=== PATIENT | female | born 1940 | race Caucasian/White ===

== ENCOUNTER 2020-12-28 20:12 | Inpatient (IN) | payer MEDICARE, OTHER ==
[~2020-12-28] VITALS: Ht 170.2 cm; Wt 75.4 kg
--- NOTE | 2020-12-28 20:25 | NUR ---
PT ARRIVES VIA EMS STRETCHER TO ROOM 344. HAS A REPORTED RT HIP FX. TRANSFERRED FROM STRETCHER TO BED WITH 3 ASSIST. PT IS ALERT AND ORIENTED X3. HAS IVF TO RIGHT FOREARM. SUN CATH IN PLACE WITH AUGUSTINA URINE. ORIENTED TO CALL LIGHT.
--- NOTE | 2020-12-28 20:40 | NUR ---
ANTONIO GARNICA AT BEDSIDE.
--- NOTE | 2020-12-28 20:55 | NUR ---
PLACED #20 INSYTE TO RIGHT FOREARM, OTHER SITE WAS DISLODGED DURING TRANSFER. HAS IVF INFUSING AT 60CC/HR.
--- NOTE | 2020-12-28 21:04 | NUR ---
MORPHINE 2MG IVP GIVEN FOR PAIN 07/24 TO RT LEG.
[2020-12-28] MEDS ORDERED: SINGULAIR 110 MG/TAB PO (22:52)
[2020-12-28] MEDS ORDERED: ATIVAN 0.50.5 MG/TAB PO (22:52)
[2020-12-28] MEDS ORDERED: PRIL40 PO (22:52)
[2020-12-28] MEDS ORDERED: CYMBALTA 30MG30 MG PO (22:52)
[2020-12-28] MEDS ORDERED: PRINZIDE 12.5 M1 TA1 PO (22:53)
[2020-12-28 23:18] VITALS: BP 139/51; PULSE 67; TEMP 98.3
[2020-12-29] VITALS (13 sets, daily range): BP systolic 107–132; BP diastolic 36–77; PULSE 67–83; TEMP 97–98.2
--- NOTE | 2020-12-29 01:24 | NUR ---
MEDICATED WITH MORPHINE 2MG IVP FOR PAIN TO RIGHT LEG. SLIGHTLY REPOSITIONED AND SCD REMOVED FROM RT LEG AT THIS TIME.
[2020-12-29 01:36] LABS: MUCOUS Present /lpf; PH 5 (5-8); SQUAMOUS EPITHELIAL 0-2 /hpf; URINE APPEARANCE Hazy; URINE BACTERIA None Seen /hpf; URINE BILIRUBIN Negative (NEGATIVE); URINE BLOOD Negative (NEGATIVE); URINE COLOR Yellow; URINE GLUCOSE Negative (NEGATIVE); URINE KETONE Negative (NEGATIVE); URINE LEUKOCYTE ESTERASE Negative (NEGATIVE); URINE NITRATE Negative (NEGATIVE); URINE PROTEIN(semi-quant) Negative (NEGATIVE); URINE RBC 0-2 /hpf; URINE UROBILINOGEN Negative (NEGATIVE)
--- NOTE | 2020-12-29 02:45 | NUR ---
PT REPOSITIONED FOR COMFORT, ICE PACK APPLIED. ATIVAN 0.5MG PO GIVEN AT THIS TIME.
--- NOTE | 2020-12-29 03:24 | NUR ---
MEDICATED WITH MORPHINE 2MG IVP FOR CONTINUED RT HIP PAIN.
[2020-12-29 03:42] LABS: COLLECTION METHOD CLEAN CATCH
--- NOTE | 2020-12-29 04:05 | NUR ---
PLACED ON OXYGEN AT 2L/NC.
[2020-12-29 06:03] LABS: HEMOGLOBIN 10.7 g/dl (12.5-16.0); MEAN CELL VOLUME 93 fl (80.0-100.0); MEAN CORPUSCULAR HEMOGLOBIN 30 pg (27.0-31.0); MEAN CORPUSCULAR HGB CONC 33 g/dl (33.0-37.0); MEAN PLATELET VOLUME 11.2 fl (7.4-10.4); PLATELET COUNT 167 K/mm3 (130-400); RED BLOOD COUNT 3.52 M/mm3 (4.10-5.30); REDCELL DISTRIBUTION WIDTH-CV 12.5 % (11.5-14.5)
[2020-12-29 06:05] LABS: HEMATOCRIT 32.8 % (37.0-47.0)
[2020-12-29 06:11] LABS: INR 1.2 (0.8-3.0); PROTHROMBIN TIME 13.4 SECONDS (9.7-12.8)
[2020-12-29 06:14] LABS: ALBUMIN 3.2 gm/dL (3.5-5.0); BILIRUBIN,TOTAL 0.9 mg/dL (0.0-1.0); CALCIUM 8.1 mg/dL (8.4-10.2); CREATININE, serum 0.79 (0.52-1.25); POTASSIUM 3.9 mmol/L (3.4-5.0); TOTAL PROTEIN 5.7 gm/dL (6.4-8.2)
[2020-12-29 06:22] LABS: PRE ALBUMIN 18.1 mg/dL (17.6-36.0)
[2020-12-29 06:39] LABS: BAND 3 % (0-10); LYMPHOCYTE 12 % (20.0-51.0); NEUTROPHILS 76 % (42.0-75.2)
[2020-12-29 06:40] LABS: HYPOCHROMIA 3+; PLATELET ESTIMATE NORMAL (NORMAL)
--- NOTE | 2020-12-29 08:49 | NUR ---
Patient resting in bed. rounded. Cleared for surgery. Plan of care reviewed. Patient spoke to her daughter on the phone. Patient remains NPO, denies nausea. Complains of thirst. Assisted with Oral care. Bed bath provided. Surgical scrub to her hip. Franco care provided. Will monitor.
--- NOTE | 2020-12-29 09:31 | NUR ---
Initial visit; Patient thanked Quality Assurance Auditor for stopping and asked that Quality Assurance Auditor keep her in her prayers.
--- NOTE | 2020-12-29 10:13 | NUR ---
Patient resting with son at bedside. Will monitor.
--- NOTE | 2020-12-29 10:39 | NUR ---
SOLEDAD met with the patient and her son, Kole (ph#[phone]), to discuss discharge plan. The patient lives alone in [place]. Kole states that he lives east of [place] and that the patient has other family members that live nearby. The patient reports independence with ADLs and does not have any DME. The patient's PCP is Dr. Stanley Vega and she receives her medications from [facility]. She reports no difficulties obtaining her meds. The patient does not have a DPOA-HC in EMR, but Kole reports that the patient does have one completed and that he is her DPOA-HC. He states that the forms are at home. The patient is not and she has five children: Kole, Kamilah, Piedad, Solomon, and Michelle. The patient has a right hip fracture and is to tentatively have surgery today. SOLEDAD discussed post-acute rehab after d/c. The patient and Kole were agreeable to rehab and chose 1) [facility] 2) [facility]. Kole reports that he can provide transportation for the patient. SOLEDAD contacted and faxed a referral to both facilities. Awaiting screens.
--- NOTE | 2020-12-29 11:16 | NUR ---
Patient to the OR with Valentine Charge nurse. Hector son to the waiting room.
--- NOTE | 2020-12-29 19:33 | NUR ---
Patient doing well post op. Vitals stable on O2. Spinal still working for pain management, she can wiggle her toes. Teds & scds Ble. She tolerated dinner without nausea & was thankful to eat. Ivf to Rfa per orders. Franco to DD. Right hip occlusive dressing intact. Bedside report to Sabiha GUZMAN
--- NOTE | 2020-12-29 19:40 | NUR ---
Patient assessed at this time. Alert and oriented x 4 at this time, but does have intermittent confusion. Easily redirected. Denies having pain and discomfort at this time. Peripheral IV to right forearm with fluids running per orders. Site without redness, warmth, swelling, and pain. Denies having SOB and dyspnea. On oxygen at 2 L/min via NC. LS CTA. Respirations even and unlabored. HRR. Telemetry in place: normal sinus. Capillary refill less than 3 seconds. Non-tenting skin turgor. BSAx4. Abdomen soft and non-tender. 1+ edema RLE. Dressing to right hip is CDI. Ice to site. SCDs and JOHN hose in place. Voices no questions, needs, or concerns at this time. Resting in bed with call light within reach. High fall risk precautions in place.
--- NOTE | 2020-12-30 01:23 | NUR ---
Patient woke up with increased confusion, unable to easily redirect. Complaining of right hip pain. Given PRN [place] and Ativan at this time. Ice applied to site.
[2020-12-30 04:07] VITALS: BP 142/49; PULSE 81; TEMP 97.5
--- NOTE | 2020-12-30 06:15 | NUR ---
Patient continues to have intermittent confusion this shift. No further complaints of pain or discomfort. Given PRN [place] and Ativan once this shift, which seemed to help. Ice to right hip. Dressing to area CDI. Resting in bed with call light within reach. High fall risk precautions in place.
[2020-12-30 06:58] LABS: BASO % 0.1 % (0.0-2.0); GRAN # 13.8 (1.4-6.5); GRAN % 84.8 % (42.2-75.2); HEMATOCRIT 27.9 % (37.0-47.0); HEMOGLOBIN 9.2 g/dl (12.5-16.0); LYMPH # 0.5 (1.2-3.4); LYMPH % 3.1 % (20.0-51.0); MEAN CELL VOLUME 94 fl (80.0-100.0); MEAN CORPUSCULAR HEMOGLOBIN 31 pg (27.0-31.0); MEAN CORPUSCULAR HGB CONC 33 g/dl (33.0-37.0); MEAN PLATELET VOLUME 11.6 fl (7.4-10.4); MONO # 1.9 (0.1-0.6); MONO % 11.6 % (1.7-9.3); PLATELET COUNT 129 K/mm3 (130-400); RED BLOOD COUNT 2.96 M/mm3 (4.10-5.30); REDCELL DISTRIBUTION WIDTH-CV 12.6 % (11.5-14.5)
[2020-12-30 07:11] LABS: CALCIUM 8.2 mg/dL (8.4-10.2); CREATININE, serum 0.75 (0.52-1.25); POTASSIUM 3.9 mmol/L (3.4-5.0)
[2020-12-30 07:18] LABS: BAND 3 % (0-10); LYMPHOCYTE 3 % (20.0-51.0); NEUTROPHILS 84 % (42.0-75.2)
[2020-12-30 07:19] LABS: PLATELET ESTIMATE NORMAL (NORMAL)
[2020-12-30 07:35] VITALS: BP 140/47; PULSE 76; TEMP 98.1
--- NOTE | 2020-12-30 09:20 | NUR ---
PATIENT AM SHIFT ASSESSMENT COMPLETED AT THIS TIME. PATIENT ORIENTED TO SELF. PATIENT CURRENTLY RESTING IN BED. PATIENT GIVEN PRN PO PAIN MEDICATION AT THIS TIME. SUN CATHETER TO DEPENDENT DRAINAGE. BED ALARM ON. CALL LIGHT IN REACH.
[2020-12-30 11:15] VITALS: BP 120/37; PULSE 80; TEMP 97.9
--- NOTE | 2020-12-30 13:46 | NUR ---
The patient is to tentatively d/c tomorrow, 12/30. SOLEDAD notified and faxed updates to Yvonne at [facility] and Geetha at [facility]. Geetha reports that they are following the patient. Yvonne reports that they are able to accept the patient. SOLEDAD contacted the patient's son, Kole, to update. Kole reports that him and his family now prefer [facility]. SOLEDAD contacted and faxed a referral to Marielena at [facility]. Awaiting screen. SOLEDAD asked the PA for a COVID test to be ordered.
--- NOTE | 2020-12-30 14:25 | NUR ---
Carolina, IPR Director, was consulted.
--- NOTE | 2020-12-30 15:00 | NUR ---
PATIENT PULLED OFF RIGHT HIP DRESSING. AQUACEL DRESSING PLACED OVER INCISION SITE ON RIGHT HIP.
--- NOTE | 2020-12-30 15:30 | NUR ---
TELEMETRY DISCONTINUED PER ORDERS. SUN CATHETER DISCONTINUED. 28 MLS OF STERILE WATER ASPIRATED FROM BALLOON. TIP INTACT. PATIENT TOLERATED WELL. MAY CARE PROVIDED. COVID SWAB COLLECTED AT THIS TIME.
[2020-12-30 16:16] VITALS: BP 127/41; PULSE 83; TEMP 98.3
--- NOTE | 2020-12-30 19:00 | NUR ---
PATIENT IS BACK IN BED RESTING. BED ALARM ON. WILL REPORT OFF TO ONCOMING NURSE.
[2020-12-30 20:07] VITALS: BP 119/54; PULSE 89; TEMP 99.3
--- NOTE | 2020-12-30 22:45 | NUR ---
Patient assessed at this time. Alert and oriented to self. Disoriented to time, place, and situation. Seems to reorient easily at first then forgets quickly and easily. Patient getting anxious, trying to get out of bed to leave to go home. Reminded she is in the hospital due to hip surgery. Calms down for short time then forgets and tries to leave again. Patient is on high fall risk precautions. Patient has facial grimacing and moaning. Patient given PRN Ativan and [place] as this time to help with anxiety and pain. Peripheral INT to right forarm. Denies having SOB and dyspnea. On room air. LS CTA. Respirations even and unlabored. HRR. Capillary refill less than 3 seconds. Non-tenting skin turgor. BSAx4. Abdomen soft and non-tender. No edema. Aquacell dressing to right hip is CDI. Voices no further questions, needs, or concerns at this time. Resting in bed with call light within reach.
[2020-12-31 00:18] VITALS: BP 105/37; PULSE 75; TEMP 98.3
--- NOTE | 2020-12-31 05:01 | NUR ---
Patient had not been able to urinate during the night. Bladder scan showed greater than 500 mls of urine in bladder. Staff went to assist patient onto bedpan, and patient started urinating. Full bed change provided. Perineal hygiene care provided. Patient complaining of pain to right hip. Given PRN [place] for pain. Voices no further questions, needs, or concerns at this time. Resting in bed with call light within reach. High fall risk precautions in place.
[2020-12-31 05:23] VITALS: BP 123/38; PULSE 76; TEMP 98.9
[2020-12-31 07:20] VITALS: BP 109/33; PULSE 72; TEMP 97.8
--- NOTE | 2020-12-31 07:20 | NUR ---
Shift assessment completed. Pt sitting in chair. Pt oriented to person but not place or time. Pupils PERRLA, equal hand [employer] school spanish teacher. INT rt forearm, no redness, irritation. Rt hip aquacell in place, CDI. pt denies pain at this time. TEDs on, chair alarm on. BP was 109/33 and O2 was 90. Informed THOMAS Godoy and she stated to hold Lisinopril. Ordered tray for pt. Put call light within reach.
[2020-12-31 08:46] LABS: MEAN CELL VOLUME 94 fl (80.0-100.0); MEAN CORPUSCULAR HGB CONC 33 g/dl (33.0-37.0); MEAN PLATELET VOLUME 11.3 fl (7.4-10.4); PLATELET COUNT 137 K/mm3 (130-400); RED BLOOD COUNT 2.75 M/mm3 (4.10-5.30); REDCELL DISTRIBUTION WIDTH-CV 12.8 % (11.5-14.5)
[2020-12-31 08:51] LABS: CALCIUM 8.2 mg/dL (8.4-10.2); CREATININE, serum 0.76 (0.52-1.25); POTASSIUM 3.7 mmol/L (3.4-5.0)
[2020-12-31 08:52] LABS: HEMATOCRIT 25.8 % (37.0-47.0); HEMOGLOBIN 8.5 g/dl (12.5-16.0); MEAN CORPUSCULAR HEMOGLOBIN 31 pg (27.0-31.0)
[2020-12-31 09:15] VITALS: BP 104/44
--- NOTE | 2020-12-31 09:28 | NUR ---
PATIENT SHIFT ASSESSMENT COMPLETED AT THIS TIME. AM PO MEDICATIONS ADMINISTERED BY STORE PRODUCT DEMONSTRATOR. PATIENT ASSISTED UP TO THE CHAIR BY PHYSICAL THERAPY THIS MORNING. ICE PACK TO RIGHT HIP. AQUACEL DRESSING IS CD&I. JOHN HOSE TO BLE. CALL LIGHT WITHIN REACH. CHAIR ALARM ON. PATIENT DENIES ANY NEEDS AT THIS TIME.
--- NOTE | 2020-12-31 09:33 | NUR ---
Marielena, at [facility], reports that they are able to accept the patient for a skilled stay.
[2020-12-31 10:30] VITALS: BP 102/46; PULSE 67; TEMP 98.1
--- NOTE | 2020-12-31 10:38 | NUR ---
Follow-up visit; krysten Goodwin thanked Yeast Fermentation Attendant for coming in and keeping her in Yeast Fermentation Attendant's prayers.
--- NOTE | 2020-12-31 11:01 | NUR ---
BP was 102/44. O2 sat 84% on room air. Notified THMOAS Godoy. Administered O2 via Nasal cannula at 2 LPM. pt denies difficulty breathing.
[2020-12-31] MEDS ORDERED: XARELTO10 MG PO (13:54)
[2020-12-31] MEDS ORDERED: NORCO 325 MG-51 TAB PO (13:54)
[2020-12-31] MEDS ORDERED: IPRATROPIUM BROM3 M1 IH (13:54)
[2020-12-31] MEDS ORDERED: FERRO-TIME325 MG PO (15:32)
[2020-12-31] MEDS ORDERED: ATIVAN 0.50.5 MG/TAB PO (15:43)
--- NOTE | 2020-12-31 15:44 | NUR ---
PATIENT GIVEN PRN PO PAIN PILL PRIOR TO TRANSFER TO [facility].
[2020-12-31 15:52] VITALS: BP 102/46; PULSE 67; TEMP 98.1
--- NOTE | 2020-12-31 16:09 | NUR ---
Carolina, IPR Director, reports that they are able to take the patient today. The patient is ready to d/c today. SOLEDAD contacted the patient's son, Kole, to update. Kole reports that they do not want to go to [facility] now and would like for the patient to go to [facility]. The patient's daughter, Riri, then arrived to the hospital. SOLEDAD met with the patient and Riri in her room. Kole was on speaker phone. Riri and Kole both report that they would like for the patient to go to [facility]. SOLEDAD notified and faxed updates to Marielena at [facility]. SOLEDAD notified IPR Director and the hospitalist. An [place] COVID test was ordered and the results came back negative. Marielena reports that they are able to take the patient today. SOLEDAD updated the patient's daughter, Riri. SOLEDAD presented and read the IM form outloud to the patient and Riri. Riri verbalized understanding and gave SW approval to sign the form on her behalf. SOLEDAD provided her with a copy. The patient is to discharge today, 12/31, to [facility] for a skilled stay. Transportation was scheduled at 1545, via [facility]. SOLEDAD informed the patient's RN and her daughter, Riri, over the phone. They were both agreeable to the time. No additional needs at this time.
--- NOTE | 2020-12-31 16:20 | NUR ---
REPORT CALLED TO THOMAS BENITEZ AT [facility]. PATIENT PERSONAL BELONGINGS GATHERED. PATIENTS INT DC'D PER PENDING DISCHARGE. PATIENT TAKEN TO PRIVATE TRANSPORT VEHICLE VIA WHEELCHAIR. PATIENT TRANSFERRED.
== END 2020-12-31 16:15 | DRG 522 ==
LOC: SURG 20:12
PROVIDERS: Nurse Practitioner Family; Orthopaedic Surgery; Physician Assistant; ADMIT Internal Medicine
PROC: 0SRR0JA Replacement of Right Hip Joint, Femoral Surface with Synthetic Substitute, Uncemented, Open Approach (ICD-10-PCS; principal; 2020-12-29 12:30)
DX: S72.001A Fracture of unspecified part of neck of right femur, initial encounter for closed fracture (principal); I50.32 Chronic diastolic (congestive) heart failure; F05 Delirium due to known physiological condition; K21.9 Gastro-esophageal reflux disease without esophagitis; F41.9 Anxiety disorder, unspecified; F32.9 Major depressive disorder, single episode, unspecified; J45.909 Unspecified asthma, uncomplicated; K58.9 Irritable bowel syndrome, unspecified; D72.829 Elevated white blood cell count, unspecified; I11.0 Hypertensive heart disease with heart failure; D64.9 Anemia, unspecified; F03.90 Unspecified dementia, unspecified severity, without behavioral disturbance, psychotic disturbance, mood disturbance, and anxiety; E11.9 Type 2 diabetes mellitus without complications; Z90.49 Acquired absence of other specified parts of digestive tract; W19.XXXA Unspecified fall, initial encounter
CPT/HCPCS: 99222-AI; 99231-AI; 99233-AI; 99239; A9284; C1776; C9113; J0690; J1100; J2250; J2270; J2704; J2795; J3010; J7030